=== PATIENT | male | born 1945 | race Caucasian/White ===

== ENCOUNTER → 2018-12-03 | Day surgery (SDC) | payer OTHER ==
[~2018-12-03] MED LIST: AMBIEN10 MG PO; PERCOCET 5-3251 EACH PO; XARELTO10 MG PO
== END | disposition home or self-care (01) ==
LOC: ADM 12-02 07:15 → AMB-ENDOS 07:15
DX: D12.4 Benign neoplasm of descending colon (principal); K62.1 Rectal polyp; K64.8 Other hemorrhoids